=== PATIENT | female | born 1960 | race Caucasian/White ===

== ENCOUNTER → 2023-12-01 12:20 | Outpatient (REF) | payer BC, SELFPAY | LOC: RAD 12:20 | PROVIDERS: ATTENDING PHYSICIAN Emergency Medicine | DX: S49.91XA Unspecified injury of right shoulder and upper arm, initial encounter (principal); M25.611 Stiffness of right shoulder, not elsewhere classified; M25.621 Stiffness of right elbow, not elsewhere classified; M25.521 Pain in right elbow | CPT/HCPCS: 73030; 73060; 73080 ==

== ENCOUNTER → 2024-05-22 07:29 | Outpatient (REF) | payer BC, SELFPAY | LOC: HWWDC 07:29 | PROVIDERS: ATTENDING PHYSICIAN Emergency Medicine | DX: Z12.31 Encounter for screening mammogram for malignant neoplasm of breast (principal) | CPT/HCPCS: 77063; 77067 ==

== ENCOUNTER → 2024-05-28 07:45 | Outpatient (REF) | payer BC, SELFPAY | LOC: HWRAD 07:45 | PROVIDERS: ATTENDING PHYSICIAN Emergency Medicine | DX: M85.89 Other specified disorders of bone density and structure, multiple sites (principal); Z13.820 Encounter for screening for osteoporosis; Z78.0 Asymptomatic menopausal state | CPT/HCPCS: 77080 ==

== ENCOUNTER → 2025-06-17 19:35 | Outpatient (REF) | payer BC, SELFPAY | LOC: WDC 19:35 | PROVIDERS: ATTENDING PHYSICIAN Family Medicine | DX: Z12.31 Encounter for screening mammogram for malignant neoplasm of breast (principal) | CPT/HCPCS: 77063; 77067 ==